=== PATIENT | female | born 1995 | race Caucasian/White ===

== ENCOUNTER 2017-07-07 17:10 | Emergency (ER) | payer OTHER ==
[~2017-07-07] VITALS: Ht 166.4 cm; Wt 81.5 kg
[2017-07-07 17:13] VITALS: TEMP 36.9; Ht 166.4 cm; Wt 81.5 kg
[2017-07-07] MEDS ORDERED: SODIUM CHLORIDE 0.9% 1000ML 1,000 ML IV ONE (17:30)
[2017-07-07] MEDS ORDERED: ACETAMINOPHEN IV 100 ML IV ONE (17:30)
[2017-07-07 18:23] LABS: BASO % 0.2 %; BASO ABS # 0.02 K/uL (0-0.2); EOS % 0.9 %; EOS ABS # 0.12 K/uL (0-0.5); HEMATOCRIT 40.4 % (37-47); HEMOGLOBIN 13.7 g/dL (12.0-16.0); IG# 0.02 K/uL (0.00-0.02); LYMPH % 22.5 %; LYMPH ABS # 2.86 K/uL (1.2-3.4); MEAN CELL VOLUME 86.1 fL (80-100); MEAN CORPUSCULAR HEMOGLOBIN 29.2 pg (25-34); MEAN CORPUSCULAR HGB CONC 33.9 g/dl (32-36); MEAN PLATELET VOLUME 9.3 fL (7.4-10.4); MONO % 8.3 %; MONO ABS # 1.06 K/uL (0.11-0.59); NEUT % 67.9 %; NEUT ABS # 8.63 K/uL (1.4-6.5); PLATELET COUNT 371 K/uL (130-400); RED CELL DISTRIBUTION WIDTH CV 13.8 % (11.5-14.5); RED CELL DISTRIBUTION WIDTH SD 43.5 fL (36.4-46.3); WHITE BLOOD COUNT 12.71 K/uL (4.8-10.8)
--- NOTE | 2017-07-07 18:26 | DIAGNOSTIC IMAGING REPORT ---
HEAD CT NONCONTRAST CT DOSE: 537.48 mGy.cm HISTORY: Headache symptoms TECHNIQUE: Multiaxial CT images of the head were performed without the use of intravenous contrast. Automated exposure control was utilized for this study. A dose lowering technique was utilized adhering to the principles of ALARA. Comparison: None. Findings: The paranasal sinuses and mastoid air cells are clear. The calvarium and skull base are intact. The ventricles and sulci are within normal limits. There is no mass, hematoma, midline shift, or acute infarct. Impression: No acute intracranial abnormality. Electronically signed by: Chan Agrawal M.D. 07/07/2017 6:24 PM Dictated Date/Time: 07/07/2017 6:20 PM
[2017-07-07 18:30] LABS: ALBUMIN 3.7 gm/dl (3.4-5.0); CALCIUM 9.5 mg/dl (8.5-10.1); CREATININE 0.67 mg/dl (0.60-1.20); POTASSIUM 3.5 mmol/L (3.5-5.1)
[2017-07-07 18:33] LABS: TOTAL PROTEIN 7.9 gm/dl (6.4-8.2)
[2017-07-07] MEDS ORDERED: CITA20TA4 PO (18:37)
[2017-07-07] MEDS ORDERED: SYMIN/8045 INH (18:37)
[2017-07-07] MEDS ORDERED: MOME6000 NAE (18:37)
[2017-07-07] MEDS ORDERED: CLR10 PO (18:37)
[2017-07-07] MEDS ORDERED: FERR1TAB23 PO (18:37)
[2017-07-07] MEDS ORDERED: LANS30CA63 PO (18:37)
[2017-07-07] MEDS ORDERED: ALBU18002 INH (18:37)
[2017-07-07] MEDS ORDERED: LURA40TA PO (18:37)
[2017-07-07 20:52] VITALS: BP 126/73; PULSE 92; O2SAT 98
--- NOTE | 2017-07-07 23:20 | EMERGENCY ROOM VISIT NOTE ---
History First contact with patient: 17:17 Chief Complaint: HEADACHE Stated Complaint: CONCUSSION LIKE SX History of Present Illness The patient is a 21 year old female who presents to the Emergency Room with complaints of headache symptoms off and on for the past 3-4 weeks. The patient reports that she has a history of several concussions, but does not report recent head injury. She is having some difficulties with focusing her vision over the past week. No fevers or chills. No chest pain or chest tightness, shortness of breath, numbness, or paresthesias. The patient has followed with neurology at home and has had CTs and MRIs that have been normal in the past. She evidently has a history of von Willebrand's and has been taking Tylenol without significant improvement of her symptoms. She rates her discomfort a 7/ 10. This is not the worst headache of her life. Review of Systems More than 10 systems were reviewed and otherwise negative with the exception of history of present illness. Past Medical/Surgical History Von Willebrand's, migraine headaches Family History No pertinent family history Social History Smoking Status: Never Smoker Occupation Status: [employer] student Current/Historical Medications Scheduled Budesonide/Formoterol Fumarate (Symbicort 80/4.5 Inhaler), 2 PUFFS INH BID Citalopram Hydrobromide (Citalopram Hydrobromide), 20 MG PO DAILY Ferrous Sulfate (Iron), 325 MG PO DAILY Lansoprazole (Prevacid), 1 CAP PO DAILY Loratadine (Claritin), 10 MG PO DAILY Lurasidone Hcl (Latuda), 1 TAB PO DAILY Scheduled PRN Albuterol Sulfate (Proair Respiclick), 2 PUFFS INH UD PRN for Rescue/SOB/Wheeze Mometasone Furoate (Nasal) (Mometasone Furoate), 2 SPRAYS CECIL DAILY PRN for Allergy Symptoms Physical Exam Vital Signs Date Time Temp Pulse Resp B/P (MAP) Pulse Ox O2 Delivery O2 Flow Rate FiO2 07/07/17 20:52 92 126/73 98 07/07/17 19:48 95 123/67 99 Room Air 07/07/17 17:13 36.9 119 17 156/107 98 Room Air Physical Exam VITALS: Vitals are noted on the nurse's note and reviewed by myself. Vital signs stable. GENERAL: Well-developed, well-nourished, white female, who is in no acute distress and resting comfortably. Patient is cooperative with the examination. HEAD: Normocephalic atraumatic. EARS: External ear normal. External auditory canals clear, tympanic membranes pearly rosales without erythema or effusion bilaterally. EYES: Pupils equal round and reactive to light and accommodation. Conjunctivae without injection, sclerae without icterus. Extraocular movements intact. NOSE: Patent, turbinates without inflammation or discharge. MOUTH: Mucous membranes moist. Tonsils are not enlarged. Pharynx without erythema, blood, or exudate. Uvula midline. Airway patent. NECK: Supple without nuchal rigidity. No lymphadenopathy. No thyromegaly. Cervical spine is nontender. No meningismus HEART: Regular rate and rhythm without murmurs gallops or rubs. LUNGS: Clear to auscultation bilaterally without wheezes, rales or rhonchi. No retractions or accessory muscle use. MUSCULOSKELETAL: No muscle atrophy, erythema, or edema noted. Full range of motion in all extremities. No tenderness to palpation. Normal gait. Strength 5/5 throughout. NEURO: Patient was alert and oriented to person place and time. CN II through XII grossly intact. No focal neurological deficits. Medical Decision & Procedures ER Provider Diagnostic Interpretation: HEAD CT NONCONTRAST CT DOSE: 537.48 mGy.cm HISTORY: Headache symptoms TECHNIQUE: Multiaxial CT images of the head were performed without the use of intravenous contrast. Automated exposure control was utilized for this study. A dose lowering technique was utilized adhering to the principles of ALARA. Comparison: None. Findings: The paranasal sinuses and mastoid air cells are clear. The calvarium and skull base are intact. The ventricles and sulci are within normal limits. There is no mass, hematoma, midline shift, or acute infarct. Impression: No acute intracranial abnormality. Laboratory Results 07/07/17 18:00 Red Blood Count 4.69, Mean Corpuscular Volume 86.1, Mean Corpuscular Hemoglobin 29.2, Mean Corpuscular Hemoglobin Concent 33.9, Mean Platelet Volume 9.3, Neutrophils (%) (Auto) 67.9, Lymphocytes (%) (Auto) 22.5, Monocytes (%) (Auto) 8.3, Eosinophils (%) (Auto) 0.9, Basophils (%) (Auto) 0.2, Neutrophils # (Auto) 8.63, Lymphocytes # (Auto) 2.86, Monocytes # (Auto) 1.06, Eosinophils # (Auto) 0.12, Basophils # (Auto) 0.02 07/07/17 18:00 Test 07/07/17 18:00 White Blood Count 12.71 K/uL (4.8-10.8) Red Blood Count 4.69 M/uL (4.2-5.4) Hemoglobin 13.7 g/dL (12.0-16.0) Hematocrit 40.4 % (37-47) Mean Corpuscular Volume 86.1 fL (80-100) Mean Corpuscular Hemoglobin 29.2 pg (25-34) Mean Corpuscular Hemoglobin Concent 33.9 g/dl (32-36) Platelet Count 371 K/uL (130-400) Mean Platelet Volume 9.3 fL (7.4-10.4) Neutrophils (%) (Auto) 67.9 % Lymphocytes (%) (Auto) 22.5 % Monocytes (%) (Auto) 8.3 % Eosinophils (%) (Auto) 0.9 % Basophils (%) (Auto) 0.2 % Neutrophils # (Auto) 8.63 K/uL (1.4-6.5) Lymphocytes # (Auto) 2.86 K/uL (1.2-3.4) Monocytes # (Auto) 1.06 K/uL (0.11-0.59) Eosinophils # (Auto) 0.12 K/uL (0-0.5) Basophils # (Auto) 0.02 K/uL (0-0.2) RDW Standard Deviation 43.5 fL (36.4-46.3) RDW Coefficient of Variation 13.8 % (11.5-14.5) Immature Granulocyte % (Auto) 0.2 % Immature Granulocyte # (Auto) 0.02 K/uL (0.00-0.02) Urine Color YELLOW Urine Appearance CLEAR (CLEAR) Urine pH 7.5 (4.5-7.5) Urine Specific [place] 1.019 (1.000-1.030) Urine Protein NEG (NEG) Urine Glucose (UA) NEG (NEG) Urine Ketones NEG (NEG) Urine Occult Blood NEG (NEG) Urine Nitrite NEG (NEG) Urine Bilirubin NEG (NEG) Urine Urobilinogen NEG (NEG) Urine Leukocyte Esterase SMALL (NEG) Urine WBC (Auto) 10-30 /hpf (0-5) Urine RBC (Auto) 0-4 /hpf (0-4) Urine Hyaline Casts (Auto) 1-5 /lpf (0-5) Urine Epithelial Cells (Auto) >30 /lpf (0-5) Urine Bacteria (Auto) 2+ (NEG) Urine Test NEG (NEG) Anion Gap 9.0 mmol/L (3-11) Est Creatinine Clear Calc Drug Dose 140.4 ml/min Estimated GFR () 144.6 Estimated GFR (Non- 124.8 BUN/Creatinine Ratio 9.9 (10-20) Calcium Level 9.5 mg/dl (8.5-10.1) Total Bilirubin 0.3 mg/dl (0.2-1) Aspartate Amino Transf (AST/SGOT) 23 U/L (15-37) Alanine Aminotransferase (ALT/SGPT) 34 U/L (12-78) Alkaline Phosphatase 82 U/L (45-117) Total Protein 7.9 gm/dl (6.4-8.2) Albumin 3.7 gm/dl (3.4-5.0) Globulin 4.2 gm/dl (2.5-4.0) Albumin/Globulin Ratio 0.9 (0.9-2) Urine Opiates Screen NEG (NEG) Urine Methadone, Qualitative NEG (NEG) Urine Barbiturates NEG (NEG) Urine Phencyclidine (PCP) Level NEG (NEG) Ur Amphetamine/Methamphetamine NEG (NEG) MDMA (Ecstasy) Screen NEG (NEG) Urine Benzodiazepines Screen NEG (NEG) Urine Cocaine Metabolite NEG (NEG) Urine Marijuana (THC) NEG (NEG) Lyme Disease IgG Antibody NEG (NEG) Lyme Disease IgM Antibody NEG (NEG) Medications Administered Medications (Trade) Dose Ordered Sig/Arthur Route Start Time Stop Time Status Last Admin Dose Admin Sodium Chloride 1,000 ml @ 999 mls/hr Q1H1M ONCE IV 07/07/17 17:30 07/07/17 18:30 DC 07/07/17 18:00 999 MLS/HR Acetaminophen 100 ml @ 400 mls/hr NOW ONCE IV 07/07/17 17:30 18 17:44 DC 07/07/17 18:00 400 MLS/HR ED Course Physical exam and history were performed. Nursing notes, EMR, and Medication List were personally reviewed. Patient appears to have headache symptoms for the past few weeks. She states her symptoms are worse today, prompting her presentation. IV access was established and labs were obtained. The patient was hydrated with normal saline and given Tylenol for comfort. CT scan was performed. The patient's blood work is as above and was reviewed. She does not have significantly elevated white blood cell count, gross anemia, bandemia, or significant electrolyte imbalance. Transaminases are not diagnostic. Lyme is negative. CT scan of the head was reviewed by myself and radiology without significant acute findings. Overall the patient appears well for discharge home. She has a history of similar symptoms in the past and does not have recent injury. Despite having von Willebrand's there is no findings of bleed on CT scan. The patient will need to follow with [facility] or her primary care physician for further care and management. She was otherwise invited to the ER with any new, worsening, or concerning symptoms. The chart was completed utilizing [employer] Voice Recognition Software. Grammatical errors, random word insertions, pronoun errors, and incomplete sentences are an occasional consequence of this system due to software limitations, ambient noise, and hardware issues. Any formal questions or concerns about the content, text, or information contained within the body of this dictation should be directly addressed to the provider for clarification. . Medical Decision The differential diagnosis includes, but is not limited to: acute intracranial bleed, meningitis, encephalitis, mass or mass effect, sinusitis, infection, tumor, headache, temporal arteritis and carbon monoxide exposure, and migraine. Impression Primary Impression: Headache Departure Information Dispostion Home / Self-Care Condition GOOD Referrals [facility] (PCP) Forms HOME CARE DOCUMENTATION FORM, IMPORTANT VISIT INFORMATION Patient Instructions My [facility] Additional Instructions You were seen and evaluated today on an emergency basis only. This is not a substitute for, or an effort to provide, complete comprehensive medical care. It is not possible to recognize and treat all injuries or illnesses in a single emergency department visit. For this reason it is recommended that you followup with [facility] or neurologist this week for ongoing care and evaluation. Rest today in a quiet, peaceful, dark environment and get a full 8-10 hrs of sleep tonight. Avoid loud noises, smoke/smoking, alcohol, bright lights, stress, or physical exertion today to minimize the chance the headache may return. Continue current medications. Acetaminophen(Tylenol) may be used for fever or pain. Use 1000mg every six hours as needed. Avoid using more than 4000mg in a 24 hour period. Return to the ER for passing out, worsening headache, vision problems, neck stiffness/pain, fevers, vomiting, worsening of your condition, or as needed.
== END 2017-07-07 20:54 | disposition home or self-care (01) ==
LOC: C.EDB 17:11 → C.EDA 20:54
DX: R51 Headache (principal); D68.0 Von Willebrand disease; Z79.899 Other long term (current) drug therapy

== ENCOUNTER → 2017-07-27 | Outpatient (CLI) | payer OTHER ==
[~2017-07-27] MED LIST: ALBU18002 INH; CITA20TA4 PO; CLR10 PO; FERR1TAB23 PO; GADAVIST IV PRN; LANS30CA63 PO; LURA40TA PO; MOME6000 NAE; SYMIN/8045 INH
--- NOTE | 2017-07-27 15:59 | DIAGNOSTIC IMAGING REPORT ---
MRA HEAD WITHOUT CONTRAST CLINICAL HISTORY: 21 years-old Female presenting with von Willebrand's disease. TECHNIQUE: MR angiography of the head was performed without the use of intravenous contrast using 3-D [id number] technique. 3-D volumetric and/or maximum intensity projection (MIP) images were subsequently reconstructed for review. IV contrast: None. COMPARISON: None. FINDINGS: Anterior circulation: Intracranial portions of the internal carotid arteries patent to the level of the termini. Anterior and middle cerebral arteries patent. Anterior communicating artery patent. Posterior circulation: Codominant vertebral arteries. Intradural portions of the vertebral arteries patent. Posterior inferior cerebellar arteries patent. Basilar artery patent. Anterior inferior cerebellar arteries poorly visualized. Superior cerebellar and posterior cerebral arteries patent. Posterior communicating arteries hypoplastic or aplastic. IMPRESSION: 1. No significant stenosis, aneurysm, or focal vessel occlusion. Electronically signed by: Manuelito Silva M.D. 07/27/2017 3:58 PM Dictated Date/Time: 07/27/2017 3:55 PM
--- NOTE | 2017-07-27 16:06 | DIAGNOSTIC IMAGING REPORT ---
BRAIN COMBO CLINICAL HISTORY: 21 years-old Female presenting with VON WILLEBRAND'S DS, CHRONIC TENSION SALAS, severe episode of pain in the temporal region on Thursday. TECHNIQUE: Multisequence, multiplanar MR imaging of the brain was performed before and after the administration of intravenous contrast. IV contrast: 7 mL of Gadavist. COMPARISON: Noncontrast CT head from 07/07/2017. FINDINGS: Ventricles and sulci normal in size. Brain parenchyma normal in appearance with preserved rosales-white differentiation. No mass effect or midline shift. No restricted diffusion to suggest acute ischemia. No hemorrhage. No extra-axial fluid collection. T2 skull base flow voids preserved. No abnormal parenchymal enhancement. Bone marrow signal intensity within the calvarium within normal limits. IMPRESSION: 1. No acute intracranial pathology. No abnormal enhancement. Electronically signed by: Manuelito Silva M.D. 07/27/2017 4:05 PM Dictated Date/Time: 07/27/2017 4:00 PM
== END | disposition home or self-care (01) ==
LOC: C.MRI 14:40
PROVIDERS: ATTEND Internal Medicine
DX: D68.0 Von Willebrand disease (principal); G44.229 Chronic tension-type headache, not intractable; M62.838 Other muscle spasm